=== PATIENT | male | born 1960 | race Caucasian/White ===

== ENCOUNTER 2019-08-03 09:47 | Emergency (ER) | payer OTHER ==
[~2019-08-03] VITALS: Ht 188 cm; Wt 104.3 kg
[2019-08-03] MEDS ORDERED: IBUPROFEN 800800 M1 PO (11:36)
[2019-08-03 12:00] VITALS: BP 144/97
== END 2019-08-03 12:00 | disposition home or self-care (01) ==
LOC: M.ERS 09:47
DX: S50.02XA Contusion of left elbow, initial encounter (principal); F17.210 Nicotine dependence, cigarettes, uncomplicated; Z88.0 Allergy status to penicillin; W01.0XXA Fall on same level from slipping, tripping and stumbling without subsequent striking against object, initial encounter; Y93.89 Activity, other specified; Y92.89 Other specified places as the place of occurrence of the external cause; Y99.8 Other external cause status